=== PATIENT | female | born 1950 | race Caucasian/White ===

== ENCOUNTER → 2019-09-23 | Outpatient (CLI) | payer MEDICARE, OTHER ==
[~2019-09-23] MED LIST: DICYCLOMINE HCL10 MG PO; DOXAZOSIN MESYLA2 MG PO; EDARBI40 MG PO; HYDRALAZINE HCL25 MG PO; LEVOTHYROXINE137 MCG PO; LOSARTAN POTASS50 MG PO; METOPROLOL SUC100 MG PO; SPIRONOLACTONE25 MG PO; ULTRAM50 MG PO
--- NOTE | 2019-09-23 13:38 | Diagnostic Imaging Report ---
EXAMINATION: MRI of the brain without contrast. HISTORY: Double vision for the last week, stroke, history of prior stroke. COMPARISON: None. TECHNIQUE: Sagittal T2; axial DWI, T2, FLAIR, T1-IR, T2 gradient echo; coronal FLAIR. FINDINGS: Parenchyma: 1. Focal approximately 1.7 cm rounded lesion in the right middle cerebellar peduncle-anterior cerebellum, which is hypointense on T1, hyperintense on T2 with marginal restricted diffusion, worrisome for acute/subacute infarction, the location is atypical for ischemia and so follow up until resolution is recommended to exclude additional underlying abnormalities. 2. Multiple small chronic cortical infarct in the right inferior parietal lobule supramarginal gyrus, left superior and inferior parietal lobules, left inferior cerebellum (PICA vascular distribution). 3. Small chronic lacunar infarcts in the bilateral sandoval radiata, left lentiform nucleus and left medial thalamus. 4. Scatter and moderate confluent periventricular white matter T2/FLAIR hyperintense foci, most likely nonspecific chronic microvascular ischemic changes. 5. No mass or hemorrhage. Skull: Unremarkable. Vessels: Expected flow voids present in the major arteries and dural sinuses. Extra-axial spaces: No abnormal signal intensity or mass effect. Brain volume: Within normal limits for age. Ventricles: No hydrocephalus or displacement. Foramen magnum: Unremarkable. Sella: Unremarkable. Paranasal / mastoid sinuses: Mucosal inflammatory thickening of the left maxillary sinus. Otherwise no abnormalities. IMPRESSION: 1. Focal lesion in the right middle cerebellar peduncle is worrisome for acute/subacute ischemic infarct, follow-up until resolution is recommended to exclude additional underlying abnormalities. 2. 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 3. Moderate white matter chronic microvascular ischemic changes and small chronic lacunar infarct as detailed above. The findings were discussed with the attending physician's nurse Verona Gagnon on 09/23/2019 at 1:33 PM Signed by: Dr. Shameka Eddy M.D. on 09/23/2019 1:35 PM
== END ==
LOC: MRI 11:48
PROVIDERS: ATTEND Internal Medicine Cardiovascular Disease
DX: I63.9 Cerebral infarction, unspecified (principal)
CPT/HCPCS: 70551

== ENCOUNTER → 2020-01-12 | Day surgery (SDC) | payer MEDICARE, OTHER ==
[2020-01-07 10:46] LABS: BASOPHILS # (AUTO) 0.1 (0.0-0.1); EOSINOPHILS # (AUTO) 0.1 (0.0-0.4); EOSINOPHILS % 1.9 % (0.0-6.0); HEMATOCRIT 36.8 % (34.2-44.1); HEMOGLOBIN 12.1 g/dL (12.0-16.0); LYMPHOCYTES # (AUTO) 1.4 (1.0-3.2); LYMPHOCYTES % 18.7 % (18.0-39.1); MEAN CORPUSCULAR HEMOGLOBIN 29.2 pg (28-32); MEAN CORPUSCULAR HGB CONC 32.9 g/dL (31-35); MEAN CORPUSCULAR VOLUME 88.7 fL (81-99); MONOCYTES # (AUTO) 0.9 (0.2-0.8); NEUTROPHILS # (AUTO) 4.8 (2.1-6.9); NEUTROPHILS % 66.1 % (38.7-80.0); PLATELET COUNT 274 x10e3/uL (140-360); RED BLOOD COUNT 4.15 x10e6/uL (3.6-5.1); RED CELL DISTRIBUTION WIDTH 12.9 % (11.7-14.4)
[2020-01-07 11:05] LABS: INR 0.91; PROTHROMBIN TIME 12.8 seconds (11.9-14.5)
[2020-01-07 11:21] LABS: ALBUMIN 3.6 g/dL (3.5-5.0); ALBUMIN/GLOBULIN RATIO 1.1 (0.8-2.0); ANION GAP 11.4 mmol/L (8-16); CALCIUM 9.3 mg/dL (8.4-10.2); CREATININE, SERUM 1.04 mg/dL (0.57-1.11); POTASSIUM 3.4 mmol/L (3.5-5.1)
[2020-01-12] VITALS (12 sets, daily range): BP systolic 84–198; BP diastolic 47–77
[~2020-01-12] VITALS: Ht 170.2 cm; Wt 88.5 kg
[~2020-01-12] MED LIST changes: +BUPROPION HCL100 MG PO; +CLOPIDOGREL BISULFATE 75 MG TAB ONE; +FENTANYL CITRATE/PF 100MCG/2 ML INJ ONE; +HEPARIN SOD (PORCINE) 1000 UNIT/ML 30ML ONE; +HEPARIN SOD/SOD CHLORIDE 1,000 ML ONE; +HEPARIN SOD/SOD CHLORIDE 2,000 ML ONE; +HYDRALAZINE HCL 20 MG/ML VIAL ONE; +HYDROCHLOROTHIA50 MG PO; +IOPAMIDOL 300MG/ML 100 ML INFUS..BTL IV ONE; +LIDOCAINE HCL 2% LOCAL 20 ML VIAL ONE; +MIDAZOLAM HCL 2 MG/2 ML VIAL ONE; +MORPHINE SULFATE INJ 4 MG/ML INJ 1ML ONE; +NITROGLYCERIN/D5W 200 MCG/ML 250 ML ONE; +SODIUM CHLORIDE 0.9% 1000ML 1,000 ML ONE; +VERAPAMIL HCL 2.5 MG/ML 2 ML VIAL ONE
--- NOTE | 2020-01-12 10:30 | NUR ---
1030 amRECEIVING NOTE BALLING MACHINE OPERATOR RECOVERY DEPT............................................................... Bedside report received from Bob TURNER. [id number]. Alert oriented and appropriate, PERRLA, respirations even and unlabored to room air. Pulses x4 extremities equal and strong. Pedal pulses PT/DP X4(1+/1+/1+/1+). Cap fill brisk < 3 sec. Skin warm and dry integrity appears D/I. IV 20g to left hand at 100cchr via controller, presents healthy w/o s/s of infiltration or complaint. Abdomen soft and supple. pt offered toileting, denies need to urinate or defecate. No personal affects with patient. Family Peter at bedside. Pt and family verbalizes understanding of POC. Currently w/o complaint of pain or need. ds/rn
--- NOTE | 2020-01-12 12:15 | NUR ---
1215 c/o back pain Rt groin Perclose no gross issues ,pallor,pressure or dysrhythmia.Medicated 4mg ivp for pain to low back 03/21. No pain to leg pain. ds/rn
--- NOTE | 2020-01-12 12:30 | NUR ---
1230 Tolerated po intake. No gross issues pain,pallor,pressure or dysrhythmia. ds/rn
--- NOTE | 2020-01-12 13:02 | NUR ---
1300 dc planning discussed with Roel hardwick. Rx given to family .Pt pain relieved with Morphine. No gross issues pain,pallor,pressure and dysrhythmia. ds/rn
--- NOTE | 2020-01-12 14:15 | NUR ---
1415pm CARROT GRADER INSPECTOR RECOVERY DISCHARGE NURSING NOTE Pt meets DC criteria. Groin Perclose site for s/s of complication and presence of hematoma. Skin warm, dry, no discolor, and pulses present. IV removed from 20g left hand.Distal tip appears intact. VS WNL. Pt denies pain, sob, or need at this time. Family at bedside.Review of discharge paperwork and follow up instructions. verbalized understanding. Pt to wheelchair and transported to front of hospital. Transferred to private vehicle under own strength w/o incident with DC paperwork in hand. -roseanne/marek
--- NOTE | 2020-01-27 13:50 | Operative Report ---
DATE OF PROCEDURE: 01/12/2020 SURGEON: Sam Mcduffie DO PROCEDURES PERFORMED: 1. Conscious sedation, 45 minutes. 2. Bilateral extremity angiography. 3. Catheter placement, aorta. 4. Abdominal aortography. 5. Third order peripheral angiography of the left lower extremity. 6. Atherectomy, balloon angioplasty and stent placement to the left superficial femoral artery. PRE-PROCEDURE DIAGNOSIS: Peripheral arterial disease with claudication. POST PROCEDURE DIAGNOSIS: Peripheral arterial disease with claudication. ESTIMATED BLOOD LOSS: Less than 20 mL. SPECIMENS REMOVED: None. PROCEDURE IN DETAIL: After informed consent was obtained, the patient was brought to the cardiac catheterization laboratory in a fasting and nonsedated state. Bilateral groins were prepped and draped in the usual sterile fashion. A 2% lidocaine was infiltrated over the right anterior groin for local anesthesia. The patient received fentanyl and midazolam given by technology lab teacher nurse and her neurologic and physiologic status was monitored by myself and technology lab teacher staff for 45 minutes. Using micropuncture needle, the right common femoral artery was accessed via modified Seldinger technique and a 5-Bengali sheath was placed. Next abdominal aortography was performed using Omni Flush catheter. This was taken up and over the iliac bifurcation and placed in the 3rd order position. Peripheral angiography confirmed severe lesions in the proximal and distal superficial femoral artery. Decision was made to intervene. I crossed a Viper wire up and over the iliac bifurcation performed atherectomy. Next, I performed balloon angioplasty with a 6 mm loop tonics drug coated balloon. There was a small dissection in the mid portion. This was stented with a 7 x 40 LifeStent. This stent was then post dilated with a 7 x 40 balloon. The patient tolerated the procedure well with no immediate complications, transferred back to room in stable condition. PROCEDURAL FINDINGS: 1. The abdominal aorta is patent, free of aneurysm and dissection. 2. Bilateral iliac systems are patent. 3. The left common femoral artery and the profunda artery are patent. The ostium of the SFA is an 80% lesion. There is a diffuse long 70% lesion in the distal superficial femoral artery. The popliteal, tibioperoneal trunk, peroneal, and posterior tibial arteries are patent. The anterior tibial artery is 100% occluded throughout its entire course and the dorsalis pedis fills via collaterals from the peroneal artery. 4. The right common femoral and the profunda arteries are patent. There is a focal mid 90% lesion in the right SFA. The popliteal is patent and there is 3-vessel runoff of the right lower extremity. IMPRESSION: Peripheral arterial disease. RECOMMENDATIONS: Continue optimal medical therapy. DO AILEEN Garcia/YONATAN /[id number]
== END | disposition home or self-care (01) ==
LOC: CATH LAB 06:27
PROVIDERS: ATTEND Internal Medicine Cardiovascular Disease
DX: I70.212 Atherosclerosis of native arteries of extremities with intermittent claudication, left leg (principal); I77.77 Dissection of artery of lower extremity; I10 Essential (primary) hypertension; R60.0 Localized edema; I63.9 Cerebral infarction, unspecified; E03.9 Hypothyroidism, unspecified; F41.9 Anxiety disorder, unspecified; Z01.812 Encounter for preprocedural laboratory examination; Z11.59 Encounter for screening for other viral diseases; Z82.49 Family history of ischemic heart disease and other diseases of the circulatory system; Z82.3 Family history of stroke
CPT/HCPCS: 36415; 37227; 75625; 80053; 85025; 85610; 87635; C1724; C1725 ×3; C1760; C1769 ×5; C1876; C1887 ×2; C2623 ×3; J0360; J1644; J2001; J2250; J2270; J3010; J7030; Q9967; 36247; 37224; 37225; 75716; 99152; 99153

== ENCOUNTER → 2020-01-21 | Day surgery (SDC) | payer MEDICARE, OTHER ==
[2020-01-18 15:05] LABS: BASOPHILS # (AUTO) 0.1 (0.0-0.1); BASOPHILS % 1.1 % (0.0-1.0); EOSINOPHILS # (AUTO) 0.2 (0.0-0.4); EOSINOPHILS % 2.4 % (0.0-6.0); HEMATOCRIT 34.7 % (34.2-44.1); HEMOGLOBIN 11.1 g/dL (12.0-16.0); LYMPHOCYTES # (AUTO) 1.8 (1.0-3.2); LYMPHOCYTES % 21.9 % (18.0-39.1); MEAN CORPUSCULAR HEMOGLOBIN 28.8 pg (28-32); MEAN CORPUSCULAR VOLUME 90.1 fL (81-99); MONOCYTES % 11.8 % (4.4-11.3); NEUTROPHILS # (AUTO) 5.2 (2.1-6.9); NEUTROPHILS % 62.6 % (38.7-80.0); PLATELET COUNT 292 x10e3/uL (140-360); RED BLOOD COUNT 3.85 x10e6/uL (3.6-5.1); RED CELL DISTRIBUTION WIDTH 13.1 % (11.7-14.4)
[2020-01-18 15:24] LABS: INR 0.93
[2020-01-18 15:30] LABS: ALBUMIN 3.3 g/dL (3.5-5.0); ALBUMIN/GLOBULIN RATIO 0.9 (0.8-2.0); ANION GAP 12.1 mmol/L (8-16); CREATININE, SERUM 1.03 mg/dL (0.57-1.11); POTASSIUM 4.1 mmol/L (3.5-5.1)
[~2020-01-21] VITALS: Ht 170.2 cm; Wt 86.6 kg
[~2020-01-21] MED LIST changes: -CLOPIDOGREL BISULFATE 75 MG TAB ONE; -HEPARIN SOD (PORCINE) 1000 UNIT/ML 30ML ONE; -HEPARIN SOD/SOD CHLORIDE 1,000 ML ONE; -MORPHINE SULFATE INJ 4 MG/ML INJ 1ML ONE; -NITROGLYCERIN/D5W 200 MCG/ML 250 ML ONE
[2020-01-21 11:49] VITALS: BP 117/57
--- NOTE | 2020-01-21 11:49 | NUR ---
1149 am RECEIVING NOTE FOOD AND DRUG RESEARCH SCIENTIST RECOVERY DEPT............................................................... Bedside report received from YUE Truong. Identifierx2. Alert oriented and appropriate, PERRLA, respirations even and unlabored to room air. Pulses x4 entreaties equal and strong. Pedal pulses PT/DP X4 and marked. Cap fill brisk < 3 sec. Skin warm and dry integrity appears D/I IV 20g to left 100cchr presents healthy w/o s/s of infiltration or complaint. Abdomen soft and supple. pt offered toileting, denies need to urinate or defecate. No personal affects with patient. Family Peter at bedside. Pt and family verbalizes understanding of POC. Currently w/o complaint of pain or need. No gross issues pain,pallor, pressure or dysrhythmia.roseanne/rn
[2020-01-21 12:00] VITALS: BP 111/67
[2020-01-21 12:30] VITALS: BP 126/60
[2020-01-21 13:00] VITALS: BP 126/66
[2020-01-21 13:30] VITALS: BP 117/77
--- NOTE | 2020-01-21 14:30 | NUR ---
1430pm CAD DETAILER RECOVERY DISCHARGE NURSING NOTE Pt meets DC criteria Left groin assessed for s/s of complication and presence of hematoma. Skin warm, dry, no discolor, and pulses present. IV removed from left had. Distal tip appears intact. VS WNL. Pt denies pain, sob, or need at this time. Family at bedside. Review of discharge paperwork and follow up instructions. verbalized understanding. Pt to wheelchair and transported to front of hospital. Transferred to private vehicle under own strength w/o incident with DC paperwork in hand. Did contact Dr Mcduffie and made aware of med reconciliation concerns. Verbal orders were confirmed to continue same meds and increase Hydralazine 100mg tid Bp control ds/rn
--- NOTE | 2020-01-21 14:55 | NUR ---
[address] Mcduffie per phone will f/o with pt home medication to reconcile with pt and personally. Pt dc stable aware of issues with pt not understanding some dosing of medications. ds/rn
--- NOTE | 2020-01-22 05:41 | Operative Report ---
DATE OF PROCEDURE: 01/21/2020 SURGEON: Sam Mcduffie DO PROCEDURES PERFORMED: 1. Conscious sedation, 45 minutes. 2. Unilateral extremity angiography. 3. Third-order peripheral angiography of the right lower extremity. 4. Orbital atherectomy and percutaneous transluminal angioplasty of the right superficial femoral artery. 5. Closure of the left arteriotomy site with an Angio-Seal device. PREPROCEDURE DIAGNOSIS: Peripheral arterial disease with claudication. ESTIMATED BLOOD LOSS: Less than 20 mL. SPECIMENS REMOVED: None. PROCEDURE IN DETAIL: After informed consent was obtained, the patient was brought to the cardiac catheterization laboratory in a fasting and nonsedated state. Bilateral groins were prepped and draped in usual sterile fashion. A 2% lidocaine was infiltrated over the left anterior groin for local anesthesia. Using micropuncture needle, the left common femoral artery was accessed via modified Seldinger technique and a 6-Nepali sheath was placed. Next, an Omni Flush catheter was taken up and over. Diagnostic imaging revealed a 70% mid superficial femoral artery stenosis. Next, I crossed an up and over 45 cm sheath. The lesion was crossed with a wire and exchanged out with a Seeker device and third-order peripheral angiography of the right lower extremity was performed. Next, a Viper wire was loaded into the Seeker device and exchanged out for a 2 mm Diamondback CSI catheter and this was used for orbital atherectomy of the lesions site. Next, I performed balloon angioplasty with a 6 x 40 IN.PACT Admiral drug-coated balloon. Final angiography revealed excellent angioplasty results with brisk antegrade flow distally with three vessel runoff of the right lower extremity. The sheath was then exchanged out for a short sheath and then the site was closed with an Angio-Seal device with excellent hemostasis. The patient tolerated the procedure well. No immediate complications and transferred back to room in stable condition. IMPRESSION: Peripheral arterial disease. RECOMMENDATIONS: Continue dual antiplatelet therapy and guideline-directed medical therapy for peripheral arterial disease. Sam Mcduffie DO BM/MODL /[id number]
== END | disposition home or self-care (01) ==
LOC: CATH LAB 08:40
PROVIDERS: ATTEND Internal Medicine Cardiovascular Disease
DX: I70.211 Atherosclerosis of native arteries of extremities with intermittent claudication, right leg (principal); I10 Essential (primary) hypertension; R60.0 Localized edema; E03.9 Hypothyroidism, unspecified; I63.9 Cerebral infarction, unspecified; F41.9 Anxiety disorder, unspecified; Z01.812 Encounter for preprocedural laboratory examination; Z11.59 Encounter for screening for other viral diseases; Z82.49 Family history of ischemic heart disease and other diseases of the circulatory system; Z82.3 Family history of stroke
CPT/HCPCS: 36415; 37225; 75625; 80053; 85025; 85610; 87635; C1724; C1760; C1769 ×3; C1887 ×2; J0360; J2001; J2250; J3010; J7030; Q9967; 36247; 75710; 99152; 99153

== ENCOUNTER → 2020-06-02 | Day surgery (SDC) | payer MEDICARE, OTHER ==
[2020-05-30 10:43] LABS: BASOPHILS # (AUTO) 0.1 (0.0-0.1); BASOPHILS % 1.3 % (0.0-1.0); EOSINOPHILS # (AUTO) 0.2 (0.0-0.4); EOSINOPHILS % 2.6 % (0.0-6.0); HEMATOCRIT 38.7 % (34.2-44.1); HEMOGLOBIN 12.9 g/dL (12.0-16.0); LYMPHOCYTES # (AUTO) 1.6 (1.0-3.2); LYMPHOCYTES % 20.2 % (18.0-39.1); MEAN CORPUSCULAR HEMOGLOBIN 29.3 pg (28-32); MEAN CORPUSCULAR HGB CONC 33.3 g/dL (31-35); MEAN CORPUSCULAR VOLUME 87.8 fL (81-99); MONOCYTES # (AUTO) 0.9 (0.2-0.8); MONOCYTES % 11.3 % (4.4-11.3); NEUTROPHILS # (AUTO) 5.1 (2.1-6.9); NEUTROPHILS % 64.5 % (38.7-80.0); PLATELET COUNT 339 x10e3/uL (140-360); RED BLOOD COUNT 4.41 x10e6/uL (3.6-5.1); RED CELL DISTRIBUTION WIDTH 13.1 % (11.7-14.4)
[2020-05-30 10:56] LABS: INR 0.91; PROTHROMBIN TIME 12.7 seconds (11.9-14.5)
[2020-05-30 11:05] LABS: ALBUMIN 3.6 g/dL (3.5-5.0); ALBUMIN/GLOBULIN RATIO 1.1 (0.8-2.0); ANION GAP 12.1 mmol/L (8-16); CALCIUM 9.2 mg/dL (8.4-10.2); CREATININE, SERUM 0.98 mg/dL (0.57-1.11); POTASSIUM 4.1 mmol/L (3.5-5.1)
--- NOTE | 2020-06-01 17:21 | NUR ---
Received answering machine. will call back
--- NOTE | 2020-06-01 18:00 | NUR ---
1800p phone interview completed. Pt aware to arrive for scheduled time. Importance to continued Covid precautions. Report any symptoms of potention infection and will continue Covid social distance precautions ds/rn
[~2020-06-02] VITALS: Ht 170.2 cm; Wt 88.5 kg
[2020-06-02] VITALS (8 sets, daily range): BP systolic 150–225; BP diastolic 67–90
[~2020-06-02] MED LIST changes: +CLOPIDOGREL75 MG PO; +LORAZEPAM INJ 2 MG/ML VIAL ONE; +LOSARTAN-HCTZ1 EACH PO; -VERAPAMIL HCL 2.5 MG/ML 2 ML VIAL ONE
--- NOTE | 2020-06-02 09:00 | NUR ---
900a Bedside report received from YUE Truong.Identiferx2. Alert oriented and appropriate, PERRLA, respirations even and unlabored to room air. Pulses x4 extremities equal and strong. Pedal pulses PT/DP X4 and marked. Cap fill brisk < 3 sec. Rt Angioseal Downtime till 1315p No gross issues pain,pallor pressure or dysrhythmia. Skin warm and dry integrity appears D/I. IV 20g to left hand presents healthy w/o s/s of infiltration or complaint. Abdomen soft and supple. pt offered toileting, denies need to urinate or defecate. No personal affects with patient. Family at bedside. Pt and family verbalizes understanding of POC. Currently w/o complaint of pain or need.ds/rn
--- NOTE | 2020-06-02 13:30 | NUR ---
1330p Pt meets DC criteria. Skin assessed for s/s of complication and presecence of hematoma. Skin warm, dry, no discolor, and pulses present. IV removed from left hand. Distal tip appears intact. VS WNL. Pt denies pain, sob, or need at this time. Family at bs. Review of discharge paperwork and follow up instructions. verbalized understanding. Pt back to baseline orientation. No gross issues pain,pallor,pressure or dsyrthmia.Pt to wheelchair and transported to front of hospital. Transferred to private vehicle under own strength w/o incident with DC paperwork in hand. - ds/rn
--- NOTE | 2020-06-16 11:12 | Operative Report ---
DATE OF PROCEDURE: 06/02/2020 SURGEON: Sam Mcduffie DO PROCEDURES PERFORMED: 1. Conscious sedation, 30 minutes. 2. Abdominal aortography. 3. Third order peripheral angiography of the left lower extremity. PRE-PROCEDURE DIAGNOSIS: Peripheral arterial disease. POST PROCEDURE DIAGNOSIS: Peripheral arterial disease. ESTIMATED BLOOD LOSS: Less than 20 mL. SPECIMENS REMOVED: None. PROCEDURE IN DETAIL: After informed consent was obtained, the patient was brought to the cardiac catheterization laboratory in a fasting and nonsedated state. Bilateral groins were prepped and draped in the usual sterile fashion. A 2% lidocaine was used for the right anterior groin for local anesthesia. Using micropuncture needle, the right common femoral was accessed via modified Seldinger technique and a 5-Bhutanese sheath was placed. Next, diagnostic abdominal aortography and 3rd order peripheral angiography of the left lower extremity were performed. The patient did not require intervention. The patient tolerated the procedure well, no immediate complications and transferred back to room in stable condition. PROCEDURAL FINDINGS: 1. The infrarenal abdominal aorta is free of dissection or aneurysm. 2. The left common iliac artery has a 30% stenosis. 3. The common femoral artery has a 30% stenosis. 4. The left superficial femoral artery has a patent stent seen in the mid portion. Of note, the common femoral stenosis and the stent are patent without pressure gradient drop. 5. There is 3-vessel runoff of the left lower extremity. IMPRESSION: Nonobstructive peripheral arterial disease with a patent stent in the superficial femoral artery. RECOMMENDATIONS: Medical management. Sam Mcduffie DO BM/MODL /[id number]
== END | disposition home or self-care (01) ==
LOC: CATH LAB 07:58
PROVIDERS: ATTEND Internal Medicine Cardiovascular Disease
DX: I73.9 Peripheral vascular disease, unspecified (principal); I10 Essential (primary) hypertension; I63.9 Cerebral infarction, unspecified; E07.9 Disorder of thyroid, unspecified; Z01.812 Encounter for preprocedural laboratory examination; Z11.59 Encounter for screening for other viral diseases; Z68.30 Body mass index [BMI] 30.0-30.9, adult; Z95.820 Peripheral vascular angioplasty status with implants and grafts; Z82.49 Family history of ischemic heart disease and other diseases of the circulatory system; Z82.3 Family history of stroke
CPT/HCPCS: 36247; 36415; 75625; 75710; 80053; 85025; 85610; C1760; C1769 ×2; J0360; J2001; J2060; J2250; J3010; J7030; Q9967; U0002; 36246; 99152; 99153